=== PATIENT | female | born 1965 | race Caucasian/White ===

== ENCOUNTER 2017-07-06 07:40 | Day surgery (SDC) | payer BC, MEDICAID ==
[2017-07-06] MEDS ORDERED: Propofol 200 MG/20 ML SDV ONE ×2 (07:56→09:28)
[2017-07-06] MEDS ORDERED: fentaNYL 100 MCG/2 ML SDV ONE (07:56)
[2017-07-06] MEDS ORDERED: Midazolam 1 MG/ML 2 ML SDV ONE (07:57)
[2017-07-06] MEDS ORDERED: Lactated Ringers 1,000 ML IV SCH (08:15)
[2017-07-06] MEDS ORDERED: Ondansetron 4 MG/2 ML SDV ONE (09:20)
[2017-07-06] MEDS ORDERED: Ampicillin 2 GM in Sodium Chloride 0.9% 100 ML IV ONE (09:30)
[2017-07-06] MEDS ORDERED: Ketorolac 60 MG/2 ML SDV IM ONE (10:46)
[2017-07-06 11:10] VITALS: BP 136/84
--- NOTE | 2017-07-06 15:03 | OR ---
DATE OF PROCEDURE: 07/06/2017 PREOPERATIVE DIAGNOSIS: Colon cancer screening. POSTOPERATIVE DIAGNOSIS: Unremarkable colonoscopy. PROCEDURE: Colonoscopy to the cecum. SURGEON: Charli Parsons MD. ANESTHESIA: IV anesthesia with monitored anesthesia care. INDICATION: This 51-year-old white female is referred for a colonoscopy for colon cancer screening. She has never had a colonoscopic exam. I counseled her for the procedure including risks and alternatives, and she gave her informed consent to proceed. DESCRIPTION OF PROCEDURE: The patient was placed in the left lateral decubitus position. IV anesthesia was administered by the Anesthesia Service. A time-out was held. A rectal exam was performed, which was unremarkable. A flexible video Olympus colonoscope was introduced through her anus, up her rectum, and out her colon, all the way to the cecum. Once the cecum was reached, the scope was slowly withdrawn, examining the mucosa throughout. No mucosal abnormalities were noted. The scope was retroflexed in the rectum with the distal rectum appearing unremarkable. The scope was straightened and removed. She tolerated the procedure well. Charli Parsons MD /[id number] MTDD
== END 2017-07-06 11:13 | disposition home or self-care (01) ==
LOC: JP.SDS 07:40
PROVIDERS: ATTEND Surgery
DX: Z12.11 Encounter for screening for malignant neoplasm of colon (principal); I10 Essential (primary) hypertension; F41.9 Anxiety disorder, unspecified; F32.9 Major depressive disorder, single episode, unspecified; Z88.2 Allergy status to sulfonamides; Z88.8 Allergy status to other drugs, medicaments and biological substances; Z90.49 Acquired absence of other specified parts of digestive tract; Z98.84 Bariatric surgery status; Z98.890 Other specified postprocedural states
CPT/HCPCS: 45378; J0290; J1885; J2250; J2405; J2704; J3010; J7030; J7120

== ENCOUNTER 2017-09-25 17:47 | Emergency (ER) | payer BC, MEDICAID ==
[2017-09-25] MEDS ORDERED: Sodium Chloride 0.9% 1,000 ML IV SCH (18:15)
--- NOTE | 2017-09-25 18:16 | EDM.PDOC ---
ED HPI GENERAL MEDICAL PROBLEM - General Chief Complaint: Neurological Problem Stated Complaint: [facility] Time Seen by Provider: 09/25/17 18:05 Source of Information: Reports: Patient, Old Records, RN History Limitations: Reports: No Limitations - History of Present Illness INITIAL COMMENTS - FREE TEXT/NARRATIVE: 51 yo female with a hx of severe and recurrent migraine presents today via EMS after a first ever seizure. Duration is unknown as she was found have a seizure in her car in the local [employer] parking lot. Does not have a OW[place] today, it went away in the night last night. Is sleep deprived. Bit her tongue, but no urinary incontinence. Does not recall the seizure. EMS states she was post-ictal when found by them. Onset: Today Onset Date: 09/25/17 Onset Time: 17:30 Duration: Other (uncertain, self-limited) Location: Reports: Generalized (? not seen by anyone that can give us a description. ) Quality: Reports: Other (no pain now) Improves with: Reports: Other (? time) Worsens with: Reports: Other (? sleep deprivation) Context: Reports: Other (Hx of severe, frequent migraine) Associated Symptoms: Reports: Confusion (during post-ictal phase), Seizure. Denies: Fever/Chills Treatments RUG SETTER AXMINSTER: Reports: Other (see below) (none) - Related Data Allergies Allergy/AdvReac Type Severity Reaction Status Date / Time morphine Allergy Syncope Verified 07/06/17 08:17 Sulfa (Sulfonamide Allergy Hives Verified 05/07/16 12:10 Antibiotics) codeine AdvReac Abdominal Verified 07/03/17 09:38 Pain ibuprofen AdvReac Abdominal Verified 07/06/17 10:48 Pain Home Meds: Home Meds Rizatriptan Benzoate [Maxalt] 10 mg PO ASDIRECTED PRN 01/12/14 [History] Calcium Carbonate/Vitamin D3 [Caltrate 600 Plus D3 Tablet] 500 mg PO BID [History] Cholecalciferol (Vitamin D3) [Vitamin D3] 1,500 units PO DAILY 01/13/16 [History ] Cyanocobalamin (Vitamin B-12) [Vitamin B-12] 1,000 mcg SL DAILY 01/13/16 [ History] DULoxetine HCl [Cymbalta] 60 mg PO DAILY 01/13/16 [History] Vitamin B Complex [B Complex] 1 tab PO DAILY 01/13/16 [History] Ciclopirox/Ure/Camph/Menth/Euc [Ciclopirox 8% Treatment Kit] 1 applic TP BEDTIME 05/07/16 [History] Omeprazole 20 mg PO ACBREAKFAST 05/07/16 [History] Pedi MV No.58/Ferrous Fumarate [Eq Child Complete Chew Tablet] 1 tab PO BID 10/27 [History] L.acidoph,Paracasei, B.lactis [Probiotic] 1 each PO DAILY 07/03/17 [History] Potassium 99 mg PO DAILY 07/06/17 [History] Past Medical History HEENT History: Reports: None Other HEENT History: deviated septum Gastrointestinal History: Reports: Bowel Obstruction Genitourinary History: Reports: None RECEPTION INTERVIEWER History: Reports: , Other (See Below) Other OB/BYN History: ovarian cysts Musculoskeletal History: Reports: Arthritis, Neck Pain, Chronic Neurological History: Reports: Headaches, Chronic, Migraines Psychiatric History: Reports: Addiction, Anxiety, Depression, Suicide Attempt Hematologic History: Reports: B12 Deficiency, Blood Transfusion(s), Iron Deficiency Oncologic (Cancer) History: Reports: Other (See Below) Other Oncologic History: non cancerous fatty tumor removed mid-back - Infectious Disease History Infectious Disease History: Reports: Chicken Pox, Human Papilloma Virus (HPV) - Past Surgical History HEENT Surgical History: Reports: LASIK, Tonsillectomy GI Surgical History: Reports: Bariatric Procedure, Cholecystectomy, EGD, Small Bowel, Other (See Below) Other GI Surgeries/Procedures: small bowel resection x2 Female Surgical History: Reports: D&C, Other (See Below) Other Female Surgeries/Procedures: right fallopion tube removed; adhesions removed Neurological Surgical History: Reports: Lumbar Spine Musculoskeletal Surgical History: Reports: Hip Replacement, Shoulder Surgery, Other (See Below) Other Musculoskeletal Surgeries/Procedures:: elbow surgery Oncologic Surgical History: Reports: None Dermatological Surgical History: Reports: None Social & Family History - Family History Family Medical History: Noncontributory - Tobacco Use Smoking Status *Q: Current Every Day Smoker Years of Tobacco use: 10 Packs/Tins Daily: 0.5 Used Tobacco, but Quit: No Second Hand Smoke Exposure: No - Caffeine Use Caffeine Use: Reports: Energy Drinks - Alcohol Use Days Per Week of Alcohol Use: 0 - Recreational Drug Use Recreational Drug Use: No Drug Use in Last 12 Months: Yes Recreational Drug Type: Reports: Xanax Recreational Drug Use Frequency: Not Used In Over 6 Months ED ROS GENERAL - Review of Systems Review Of Systems: See Below Constitutional: Reports: No Symptoms HEENT: Reports: Other (sore tongue) Respiratory: Reports: No Symptoms Cardiovascular: Reports: No Symptoms GI/Abdominal: Reports: No Symptoms : Reports: No Symptoms Musculoskeletal: Reports: No Symptoms Skin: Reports: No Symptoms Neurological: Reports: Headache (not now, but has them frequently.), Seizure ( per passers by who called 911) Psychiatric: Reports: No Symptoms - Physical Exam Exam: See Below Exam Limited By: No Limitations General Appearance: Alert, WD/WN, No Apparent Distress Eye Exam: Bilateral Eye: EOMI, Normal Inspection, PERRL Ears: Normal External Exam, Normal Canal, Hearing Grossly Normal, Normal TMs Nose: Normal Inspection, Normal Mucosa, No Blood Throat/Mouth: Normal Inspection, Normal Lips, Normal Teeth, Normal Oropharynx, Normal Voice, No Airway Compromise, Evidence of Tongue Biting Head Exam: Atraumatic, Normocephalic Neck: Normal Inspection, Supple, Non-Tender Respiratory/Chest: No Respiratory Distress, Lungs Clear, Normal Breath Sounds, No Accessory Muscle Use Cardiovascular: Regular Rate, Rhythm, No Edema GI/Abdominal: Normal Bowel Sounds, Soft, Non-Tender, No Distention Neuro Exam (Abbreviated): Alert, Oriented, CN II-XII Intact, Normal Cognition, No Motor/Sensory Deficits Back Exam: Normal Inspection. No: CVA Tenderness (R), CVA Tenderness (L) Extremities: Normal Inspection, Normal Range of Motion, Non-Tender, No Pedal Edema Psychiatric: Normal Affect, Normal Mood Skin Exam: Warm, Dry, Intact, Normal Color, No Rash Course - Vital Signs Last Recorded V/S: Last Vital Signs Temp 37.1 C 09/25/17 18:24 Pulse 96 09/25/17 18:30 Resp 18 09/25/17 18:30 BP 164/101 H 09/25/17 18:30 Pulse Ox 95 09/25/17 18:30 - Orders/Labs/Meds Orders: Active Orders 24 hr Category Date Time Status Cardiac Monitoring [RC] .As Directed Care 09/25/17 18:01 Active Head wo Cont [CT] Stat Exams 09/25/17 18:08 Taken Sodium Chloride 0.9% [Normal Saline] 1,000 ml Med 09/25/17 18:15 Active IV ASDIRECTED Medication Orders Sodium Chloride (Normal Saline) 1,000 mls @ 150 mls/hr IV ASDIRECTED COURNTEY Last Admin: 09/25/17 18:57 Dose: 150 mls/hr Labs: Laboratory Tests 09/25/17 09/25/17 09/25/17 Range/Units 18:08 18:08 18:19 WBC 7.0 (4.5-11.0) K/uL RBC 4.50 (3.30-5.50) M/uL Hgb 13.7 D (12.0-15.0) g/dL Hct 41.4 (36.0-48.0) % MCV 92 (80-98) fL MCH 30 (27-31) pg MCHC 33 (32-36) % Plt Count 332 (150-400) K/uL Sodium 141 (140-148) mmol/L Potassium 4.2 (3.6-5.2) mmol/L Chloride 103 (100-108) mmol/L Carbon Dioxide 25 (21-32) mmol/L Anion Gap 13.1 (5.0-14.0) mmol/L BUN 13 (7-18) mg/dL Creatinine 0.8 (0.6-1.0) mg/dL Est Cr Clr Drug Dosing 81.81 mL/min Estimated GFR (MDRD) > 60 (>60) Glucose 101 (74-106) mg/dL Calcium 9.0 (8.5-10.1) mg/dL Magnesium (1.8-2.4) mg/dL AST 19 (15-37) U/L Urine Color Urine Appearance Urine pH (4.5-8.0) Ur Specific [place] (1.008-1.030) Urine Protein (NEGATIVE) mg/dL Urine Glucose (UA) (NEGATIVE) mg/dL Urine Ketones (NEGATIVE) mg/dL Urine Occult Blood (NEGATIVE) Urine Nitrite (NEGATIVE) Urine Bilirubin (NEGATIVE) Urine Urobilinogen (NORMAL) mg/dL Ur Leukocyte Esterase (NEGATIVE) Urine RBC (0-5) Urine WBC (0-5) Ur Epithelial Cells Amorphous Sediment Urine Bacteria Urine Mucus Urine Opiates Screen (NEGATIVE) Ur Oxycodone Screen (NEGATIVE) Urine Methadone Screen (NEGATIVE) Ur Propoxyphene Screen (NEGATIVE) Ur Barbiturates Screen (NEGATIVE) Ur Tricyclics Screen (NEGATIVE) Ur Phencyclidine Scrn (NEGATIVE) Ur Amphetamine Screen (NEGATIVE) U Methamphetamines Scrn (NEGATIVE) Urine MDMA Screen (NEGATIVE) U Benzodiazepines Scrn (NEGATIVE) U Cocaine Metab Screen (NEGATIVE) U Marijuana (THC) Screen (NEGATIVE) 09/25/17 09/25/17 09/25/17 Range/Units 18:43 18:43 19:01 WBC (4.5-11.0) K/uL RBC (3.30-5.50) M/uL Hgb (12.0-15.0) g/dL Hct (36.0-48.0) % MCV (80-98) fL MCH (27-31) pg MCHC (32-36) % Plt Count (150-400) K/uL Sodium (140-148) mmol/L Potassium (3.6-5.2) mmol/L Chloride (100-108) mmol/L Carbon Dioxide (21-32) mmol/L Anion Gap (5.0-14.0) mmol/L BUN (7-18) mg/dL Creatinine (0.6-1.0) mg/dL Est Cr Clr Drug Dosing mL/min Estimated GFR (MDRD) (>60) Glucose (74-106) mg/dL Calcium (8.5-10.1) mg/dL Magnesium 2.0 (1.8-2.4) mg/dL AST (15-37) U/L Urine Color Yellow Urine Appearance Clear Urine pH 6.0 (4.5-8.0) Ur Specific [place] 1.020 (1.008-1.030) Urine Protein Negative (NEGATIVE) mg/dL Urine Glucose (UA) Normal (NEGATIVE) mg/dL Urine Ketones 15 H (NEGATIVE) mg/dL Urine Occult Blood Negative (NEGATIVE) Urine Nitrite Negative (NEGATIVE) Urine Bilirubin Negative (NEGATIVE) Urine Urobilinogen Normal (NORMAL) mg/dL Ur Leukocyte Esterase Negative (NEGATIVE) Urine RBC 0-5 (0-5) Urine WBC 0-5 (0-5) Ur Epithelial Cells Few Amorphous Sediment Few Urine Bacteria Rare Urine Mucus Few Urine Opiates Screen Negative (NEGATIVE) Ur Oxycodone Screen Negative (NEGATIVE) Urine Methadone Screen Negative (NEGATIVE) Ur Propoxyphene Screen Negative (NEGATIVE) Ur Barbiturates Screen Negative (NEGATIVE) Ur Tricyclics Screen Negative (NEGATIVE) Ur Phencyclidine Scrn Negative (NEGATIVE) Ur Amphetamine Screen Negative (NEGATIVE) U Methamphetamines Scrn Negative (NEGATIVE) Urine MDMA Screen Negative (NEGATIVE) U Benzodiazepines Scrn Negative (NEGATIVE) U Cocaine Metab Screen Negative (NEGATIVE) U Marijuana (THC) Screen Negative (NEGATIVE) Meds: Medications Generic Name Dose Route Start Last Admin Trade Name Freq PRN Reason Stop Dose Admin Sodium Chloride 1,000 mls @ 150 mls/hr 09/25/17 18:15 09/25/17 18:57 Normal Saline IV 150 mls/hr ASDIRECTED COURTNEY Administration Discontinued Medications Generic Name Dose Route Start Last Admin Trade Name Freq PRN Reason Stop Dose Admin Rizatriptan Benzoate 10 mg 09/25/17 18:58 09/25/17 19:07 Maxalt Arc And [employer] Welder PO 09/25/17 18:59 10 mg NOW STA Administration - Radiology Interpretation Free Text/Narrative:: Head CT scan-negative CT Results Date: 09/25/17 Departure - Departure Time of Disposition: 19:15 Disposition: Home, Self-Care 01 Condition: Fair Clinical Impression: Seizure Migraine Qualifiers: Migraine type: without aura Status migrainosus presence: with status migrainosus Intractability: not intractable Qualified Code(s): G43.001 - Migraine without aura, not intractable, with status migrainosus - Discharge Information Referrals: PCP,None [Primary Care Provider] - Forms: ED Department Discharge - My Orders Last 24 Hours: My Active Orders 09/25/17 18:01 Cardiac Monitoring [RC] .As Directed 09/25/17 18:08 Head wo Cont [CT] Stat 09/25/17 18:15 Sodium Chloride 0.9% [Normal Saline] 1,000 ml IV ASDIRECTED - Assessment/Plan Last 24 Hours: My Active Orders 09/25/17 18:01 Cardiac Monitoring [RC] .As Directed 09/25/17 18:08 Head wo Cont [CT] Stat 09/25/17 18:15 Sodium Chloride 0.9% [Normal Saline] 1,000 ml IV ASDIRECTED
[2017-09-25 18:45] VITALS: BP 164/101
[2017-09-25] MEDS ORDERED: Rizatriptan 10 MG Tab.DIS PO STA (18:58)
== END 2017-09-25 20:08 | disposition home or self-care (01) ==
LOC: JP.ED 17:47
DX: R56.9 Unspecified convulsions (principal); G43.001 Migraine without aura, not intractable, with status migrainosus; Z79.899 Other long term (current) drug therapy; Z88.6 Allergy status to analgesic agent
CPT/HCPCS: 36415; 70450; 80048; 80305; 81001; 83735; 84450; 85027; 99284; A9270; J7040

== ENCOUNTER 2019-08-19 09:46 | Emergency (ER) | payer MEDICARE ==
--- NOTE | 2019-08-19 10:25 | EDM.PDOCBH ---
ED HPI GENERAL MEDICAL PROBLEM - General Chief Complaint: Behavioral/Psych Stated Complaint: SLEEPING ALOT BEEN VERY TIRED Time Seen by Provider: 08/19/19 11:19 - History of Present Illness INITIAL COMMENTS - FREE TEXT/NARRATIVE: 53 yo history of depression, PTSD presents today with her her concern of increased depressive symptoms About two weeks ago noticed increased depressive symptoms - sleeping more, lack of energy, loss of interest in daily living She reports this occurs around the anniversary of her going through treatment for benzo dependency which was very traumatic She has a hard time concentrating during the day - ie driving in the lines on the road is concerned because these symptoms have lasted longer than usual, he also notes occasional gait instability. She denies any fever, focal weakness. No med changes. No SI. No hallucinations. - Related Data Allergies Allergy/AdvReac Type Severity Reaction Status Date / Time Sulfa (Sulfonamide Allergy Severe Hives Verified 08/19/19 10:28 Antibiotics) morphine Allergy Intermediate Syncope Verified 08/19/19 10:28 codeine AdvReac Intermediate Abdominal Verified 08/19/19 10:28 Pain ibuprofen AdvReac Intermediate Abdominal Verified 08/19/19 10:28 Pain Home Meds: Home Meds Rizatriptan Benzoate [Maxalt] 10 mg PO ASDIRECTED PRN 01/12/14 [History] Calcium Carbonate/Vitamin D3 [Caltrate 600 Plus D3 Tablet] 500 mg PO BID [History] Cholecalciferol (Vitamin D3) [Vitamin D3] 1,500 units PO DAILY 01/13/16 [History ] Cyanocobalamin (Vitamin B-12) [Vitamin B-12] 1,000 mcg SL DAILY 01/13/16 [ History] DULoxetine HCl [Cymbalta] 60 mg PO DAILY 01/13/16 [History] Vitamin B Complex [B Complex] 1 tab PO DAILY 01/13/16 [History] Pedi MV No.58/Ferrous Fumarate [Eq Child Complete Chew Tablet] 1 tab PO BID 10/27 [History] L.acidoph,Paracasei, B.lactis [Probiotic] 1 each PO DAILY 07/03/17 [History] Potassium 99 mg PO DAILY 07/06/17 [History] Black Cohosh 540 mg PO DAILY 08/19/19 [History] Propranolol [Inderal] 10 mg PO TID 08/19/19 [History] Past Medical History HEENT History: Reports: None Other HEENT History: deviated septum Gastrointestinal History: Reports: Bowel Obstruction Genitourinary History: Reports: None ENVIRONMENTAL MANAGEMENT SPECIALIST History: Reports: , Other (See Below) Other ENVIRONMENTAL MANAGEMENT SPECIALIST History: ovarian cysts Musculoskeletal History: Reports: Arthritis, Neck Pain, Chronic Neurological History: Reports: Headaches, Chronic, Migraines Psychiatric History: Reports: Addiction, Anxiety, Depression, Suicide Attempt Hematologic History: Reports: B12 Deficiency, Blood Transfusion(s), Iron Deficiency Oncologic (Cancer) History: Reports: Other (See Below) Other Oncologic History: non cancerous fatty tumor removed mid-back - Infectious Disease History Infectious Disease History: Reports: Chicken Pox, Human Papilloma Virus (HPV) - Past Surgical History HEENT Surgical History: Reports: LASIK, Tonsillectomy GI Surgical History: Reports: Bariatric Procedure, Cholecystectomy, EGD, Small Bowel, Other (See Below) Other GI Surgeries/Procedures: small bowel resection x2 Female Surgical History: Reports: D&C, Other (See Below) Other Female Surgeries/Procedures: right fallopion tube removed; adhesions removed Neurological Surgical History: Reports: Lumbar Spine Musculoskeletal Surgical History: Reports: Hip Replacement, Shoulder Surgery, Other (See Below) Other Musculoskeletal Surgeries/Procedures:: elbow surgery Oncologic Surgical History: Reports: None Dermatological Surgical History: Reports: None Social & Family History - Family History Family Medical History: Noncontributory - Caffeine Use Caffeine Use: Reports: Energy Drinks ED ROS GENERAL - Review of Systems Review Of Systems: See Below Constitutional: Reports: No Symptoms HEENT: Reports: No Symptoms Respiratory: Reports: No Symptoms Cardiovascular: Reports: No Symptoms Endocrine: Reports: No Symptoms GI/Abdominal: Reports: No Symptoms : Reports: No Symptoms Musculoskeletal: Reports: No Symptoms Skin: Reports: No Symptoms Neurological: Reports: No Symptoms Psychiatric: Reports: Depression. Denies: Hallucinations, Suicidal Ideation Hematologic/Lymphatic: Reports: No Symptoms Immunologic: Reports: No Symptoms ED EXAM, BEHAVIORAL HEALTH - Physical Exam Exam: See Below Exam Limited By: No Limitations General Appearance: Alert, No Apparent Distress Ears: Normal External Exam Nose: Normal Inspection Throat/Mouth: Normal Inspection Head: Atraumatic Neck: Normal Inspection Respiratory/Chest: No Respiratory Distress Cardiovascular: Regular Rate, Rhythm GI/Abdominal: Non-Tender, No Distention Back Exam: Normal Inspection Extremities: Normal Inspection Neurological: Alert Psychiatric: Alert, Flat Affect, Other (tearful) Skin Exam: Warm, Dry COURSE, BEHAVIORAL HEALTH COMP - Course Vital Signs: Last Vital Signs Temp 36.4 C 08/19/19 10:24 Pulse 68 08/19/19 10:24 Resp 18 08/19/19 10:24 BP 121/82 08/19/19 10:24 Pulse Ox 100 08/19/19 10:24 Re-Assessment/Re-Exam: 53 yo presents with concerns of increased depressive symptoms Some concern from for behavioral changes, occasional difficulty with ambulation, duration of symptoms. They are concerned for stroke, symptoms and exam not consistent with this. We discussed very low probability of structural lesion (ie tumor), but patient and very concerned about this so non-con HCT obtained and normal. She is currently not dangerous to self. Has as support and reports would not hurt self due to mandaeism beliefs. She is safe for prompt PCP follow-up, I call PCP office to arrange this early next week. She knows she can return to ER at any time if she feels unsafe to self. Departure - Departure Time of Disposition: 12:20 Disposition: Home, Self-Care 01 Clinical Impression: Depression Qualifiers: Depression Type: major depressive disorder Major depression recurrence: recurrent Active/Remission status: currently active Major depression episode severity: moderate Qualified Code(s): F33.1 - Major depressive disorder, recurrent, moderate - Discharge Information Referrals: Devan Gamble MD [Primary Care Provider] - Forms: ED Department Discharge Additional Instructions: You head CT scan is normal. Please follow up with Dr Gamble on Thursday (Aug 23) at 2:30pm to discuss further management of your depressive symptoms Please return to the ER if you feel that you may hurt yourself
[2019-08-19 10:26] VITALS: BP 121/82; PULSE 68
--- NOTE | 2019-08-19 12:04 | CRLCT ---
INDICATION: confusion, gait instability CT HEAD WITHOUT CONTRAST TECHNIQUE: Multiple axial CT images were performed through the head without intravenous contrast administration. COMPARISON: 09/25/[address] FINDINGS: No acute intracranial hemorrhage is identified. No extra-axial collections are evident and there is no mass effect or midline shift. Ventricles are normal in size and configuration. Brain parenchyma appears normal with unremarkable murcia-white differentiation. Osseous structures are within normal limits and no fractures are seen. Included portions of the paranasal sinuses and mastoid air cells are normally aerated. IMPRESSION: Normal non-contrast head CT. MARC INTERIANO MD [facility] Dictated by: Usman Interiano MD @ 08/19/2019 12:03:16 (Electronically Signed)
== END 2019-08-19 13:12 | disposition home or self-care (01) ==
LOC: JP.ED 09:46
DX: F33.1 Major depressive disorder, recurrent, moderate (principal); Z88.2 Allergy status to sulfonamides; Z88.5 Allergy status to narcotic agent; Z88.6 Allergy status to analgesic agent
CPT/HCPCS: 70450; 99283; 99284-25

== ENCOUNTER 2021-09-23 04:09 | Inpatient (IN) | payer MEDICARE ==
[2021-09-23] MEDS ORDERED: HYDROmorphone 1 MG/ML Syringe IVPUSH ONE (04:28)
[2021-09-23] MEDS ORDERED: Ondansetron 4 MG/2 ML SDV IVPUSH ONE (04:28)
[2021-09-23] MEDS ORDERED: Sodium Chloride 0.9% 10 ML Syringe FLUSH PRN ×2 (04:28→06:59)
[2021-09-23] MEDS ORDERED: Lactated Ringers 1,000 ML IV SCH (04:30)
--- NOTE | 2021-09-23 04:41 | EDM.PDOC ---
ED HPI GENERAL MEDICAL PROBLEM - General Chief Complaint: Abdominal Pain Stated Complaint: POSSIBLE SMALL BOWEL OBSTRUCTION Time Seen by Provider: 09/23/21 04:22 Source of Information: Reports: Patient, Old Records, RN Notes Reviewed History Limitations: Reports: No Limitations - History of Present Illness INITIAL COMMENTS - FREE TEXT/NARRATIVE: 55-year-old female presents emergency department day complaint of abdominal pain. She has known history of gastric bypass she is also has a history of bowel obstruction in the past. Recently had CAT scan done this summer which shahid wed partial small bowel obstruction. Has had some resolution with that as she has been able to function in the community without any particular intervention. Has been following with the gastric bypass surgery center had scheduled an exploratory laparotomy for 07 October. Recently had preoperative evaluation done and preoperative surgical visitations in clinic. However started having abdominal pain early in the evening last night is progressively gotten worse. She is not passing any gas does have nausea pain is been difficult to get under control. No fevers no Covid exposure that she is aware of Abdomen Pain Score (Numeric/FACES): 6 - Related Data Allergies Allergy/AdvReac Type Severity Reaction Status Date / Time Sulfa (Sulfonamide Allergy Severe Hives Verified 09/23/21 04:19 Antibiotics) morphine Allergy Intermediate Syncope Verified 09/23/21 04:19 codeine AdvReac Intermediate Abdominal Verified 09/23/21 04:19 Pain ibuprofen AdvReac Intermediate Abdominal Verified 09/23/21 04:19 Pain Home Meds: Home Meds Rizatriptan Benzoate [Maxalt] 10 mg PO ASDIRECTED PRN 01/12/14 [History] Calcium Carbonate/Vitamin D3 [Caltrate 600 Plus D3 Tablet] 500 mg PO BID 01/13/16 [History] Cholecalciferol (Vitamin D3) [Vitamin D3] 1,500 units PO DAILY 01/13/16 [Hist ory] Cyanocobalamin (Vitamin B-12) [Vitamin B-12] 1,000 mcg SL DAILY 01/13/16 [History] DULoxetine HCl [Cymbalta] 60 mg PO DAILY 01/13/16 [History] Vitamin B Complex [B Complex] 1 tab PO DAILY 01/13/16 [History] Pedi MV No.58/Ferrous Fumarate [Eq Child Complete Chew Tablet] 1 tab PO BID 07/12/16 [History] L.acidoph,Paracasei, B.lactis [Probiotic] 1 each PO DAILY 07/03/17 [History] Potassium 99 mg PO DAILY 07/06/17 [History] Black Cohosh 540 mg PO DAILY 08/19/19 [History] Propranolol [Inderal] 10 mg PO TID 08/19/19 [History] Past Medical History Other HEENT History: deviated septum Gastrointestinal History: Reports: Bowel Obstruction [employer]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: Reports: , Other (See Below) 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 Musculoskeletal History: Reports: Arthritis, Neck Pain, Chronic Neurological History: Reports: Headaches, Chronic, Migraines Psychiatric History: Reports: Addiction, Anxiety, Depression, Suicide Attempt Hematologic History: Reports: B12 Deficiency, Blood Transfusion(s), Iron Deficiency Oncologic (Cancer) History: Reports: Other (See Below) Other Oncologic History: non cancerous fatty tumor removed mid-back - Infectious Disease History Infectious Disease History: Reports: Chicken Pox, Human Papilloma Virus (HPV) - Past Surgical History HEENT Surgical History: Reports: LASIK, Tonsillectomy GI Surgical History: Reports: Bariatric Procedure, Cholecystectomy, EGD, Small Bowel, Other (See Below) Other GI Surgeries/Procedures: small bowel resection x2 Female Surgical History: Reports: D&C, Other (See Below) Other Female Surgeries/Procedures: right fallopion tube removed; adhesions removed Neurological Surgical History: Reports: Lumbar Spine Musculoskeletal Surgical History: Reports: Hip Replacement, Shoulder Surgery, Other (See Below) Other Musculoskeletal Surgeries/Procedures:: elbow surgery Oncologic Surgical History: Reports: None Dermatological Surgical History: Reports: None Social & Family History - Family History Family Medical History: No Pertinent Family History - Tobacco Use Tobacco Use Status *Q: Current Every Day Tobacco User Years of Tobacco use: 5 Packs/Tins Daily: 0 - Caffeine Use Caffeine Use: Reports: Energy Drinks - Recreational Drug Use Recreational Drug Use: No ED ROS GENERAL - Review of Systems Review Of Systems: See Below Constitutional: Reports: No Symptoms HEENT: Reports: No Symptoms Respiratory: Reports: No Symptoms Cardiovascular: Reports: No Symptoms GI/Abdominal: Reports: Abdominal Pain, Nausea ED EXAM, GI/ABD - Physical Exam Exam: See Below Exam Limited By: No Limitations General Appearance: Alert, Moderate Distress Respiratory/Chest: No Respiratory Distress, Lungs Clear, Normal Breath Sounds, No Accessory Muscle Use, Chest Non-Tender Cardiovascular: Regular Rate, Rhythm, No Murmur GI/Abdominal Exam: Normal Bowel Sounds, Soft, No Distention, No Abnormal Bruit, No Mass, Tender (Midline epigastric region) Course - Vital Signs Last Recorded V/S: Last Vital Signs Temp 97.8 F 09/23/21 04:49 Pulse 81 09/23/21 04:23 Resp 20 09/23/21 04:23 BP 157/105 H 09/23/21 04:23 Pulse Ox 98 09/23/21 04:23 - Orders/Labs/Meds Orders: Active Orders 24 hr Category Date Time Status Peripheral IV Care [RC] . DIRECTED Care 09/23/21 04:29 Active UA W/MICROSCOPIC [URIN] Urgent Lab 09/23/21 04:28 Ordered Iopamidol [Isovue-300 (61%)] Med 09/23/21 04:42 Active 117 ml IV . DIRECTED PRN Lactated Ringers [Ringers, Lactated] 1,000 ml Med 09/23/21 04:30 Active IV ASDIRECTED Sodium Chloride 0.9% [Normal Saline] 100 ml Med 09/23/21 04:45 Active IV ASDIRECTED Sodium Chloride 0.9% [Saline Flush] Med 09/23/21 04:28 Active 10 ml FLUSH ASDIRECTED PRN Peripheral IV Insertion Adult [OM.PC] Urgent Oth 09/23/21 04:28 Ordered Medication Orders Lactated Ringer's (Ringers, Lactated) 1,000 mls @ 125 mls/hr IV ASDIRECTED COURTNEY Last Admin: 09/23/21 04:40 Dose: 125 mls/hr Documented by: ESTHER Sodium Chloride (Normal Saline) 100 mls @ 3 mls/sec IV ASDIRECTED [facility] Iopamidol (Iopamidol 612 Mg/Ml 150 Ml Bottle) 117 ml IV . DIRECTED PRN PRN Reason: RADIOLOGY EXAM Stop: 09/24/21 04:43 Last Admin: 09/23/21 05:09 Dose: 117 ml Documented by: LIONEL Sodium Chloride (Sodium Chloride 0.9% 10 Ml Syringe) 10 ml FLUSH ASDIRECTED PRN PRN Reason: Keep Vein Open Last Admin: 09/23/21 05:10 Dose: 10 ml Documented by: LIONEL Labs: Laboratory Tests 09/23/21 09/23/21 09/23/21 Range/Units 04:10 04:10 04:10 WBC 6.0 (4.5-11.0) K/uL RBC 4.99 (3.30-5.50) M/uL Hgb 14.9 (12.0-15.0) g/dL Hct 45.1 (36.0-48.0) % MCV 90 (80-98) fL MCH 30 (27-31) pg MCHC 33 (32-36) % Plt Count 329 (150-400) K/uL Neut % (Auto) 49.4 (36-66) % Lymph % (Auto) 37.3 (24-44) % [place] % (Auto) 8.5 H (2-6) % Eos % (Auto) 3.5 (2-4) % Baso % (Auto) 1.3 H (0-1) % Sodium 137 L (140-148) mmol/L Potassium 4.0 (3.6-5.2) mmol/L Chloride 102 (100-108) mmol/L Carbon Dioxide 27 (21-32) mmol/L Anion Gap 12.0 (5.0-14.0) mmol/L BUN 19 H (7-18) mg/dL Creatinine 0.9 (0.6-1.0) mg/dL Est Cr Clr Drug Dosing 69.49 mL/min Estimated GFR (MDRD) > 60 (>60) Glucose 118 H (74-106) mg/dL Lactic Acid 1.5 (0.4-2.0) mmol/L Calcium 9.2 (8.5-10.1) mg/dL Total Bilirubin 0.3 (0.2-1.0) mg/dL AST 23 (15-37) U/L ALT 45 (12-78) U/L Alkaline Phosphatase 92 (46-116) U/L Total Protein 7.4 (6.4-8.2) g/dL Albumin 4.3 (3.4-5.0) g/dL Globulin 3.1 (2.3-3.5) g/dL Albumin/Globulin Ratio 1.4 (1.2-2.2) Lipase 271 (73-393) U/L SARS CoV-2 RNA Rapid SCOOTER 09/23/21 Range/Units 04:37 WBC (4.5-11.0) K/uL RBC (3.30-5.50) M/uL Hgb (12.0-15.0) g/dL Hct (36.0-48.0) % MCV (80-98) fL MCH (27-31) pg MCHC (32-36) % Plt Count (150-400) K/uL Neut % (Auto) (36-66) % Lymph % (Auto) (24-44) % [place] % (Auto) (2-6) % Eos % (Auto) (2-4) % Baso % (Auto) (0-1) % Sodium (140-148) mmol/L Potassium (3.6-5.2) mmol/L Chloride (100-108) mmol/L Carbon Dioxide (21-32) mmol/L Anion Gap (5.0-14.0) mmol/L BUN (7-18) mg/dL Creatinine (0.6-1.0) mg/dL Est Cr Clr Drug Dosing mL/min Estimated GFR (MDRD) (>60) Glucose (74-106) mg/dL Lactic Acid (0.4-2.0) mmol/L Calcium (8.5-10.1) mg/dL Total Bilirubin (0.2-1.0) mg/dL AST (15-37) U/L ALT (12-78) U/L Alkaline Phosphatase (46-116) U/L Total Protein (6.4-8.2) g/dL Albumin (3.4-5.0) g/dL Globulin (2.3-3.5) g/dL Albumin/Globulin Ratio (1.2-2.2) Lipase (73-393) U/L SARS CoV-2 RNA Rapid SCOOTER Negative Meds: Medications Generic Name Dose Route Start Last Admin Trade Name Freq PRN Reason Stop Dose Admin Lactated Ringer's 1,000 mls @ 125 mls/hr 09/23/21 04:30 09/23/21 04:40 Ringers, Lactated IV 125 mls/hr ASDIRECTED COURTNEY Administration Sodium Chloride 100 mls @ 3 mls/sec 09/23/21 04:45 Normal Saline IV ASDIRECTED COURTNEY Iopamidol 117 ml 09/23/21 04:42 09/23/21 05:09 Iopamidol 612 Mg/Ml 150 Ml Bottle IV 09/24/21 04:43 117 ml . DIRECTED PRN Administration RADIOLOGY EXAM Sodium Chloride 10 ml 09/23/21 04:28 09/23/21 05:10 Sodium Chloride 0.9% 10 Ml Syringe FLUSH 10 ml ASDIRECTED PRN Administration Keep Vein Open Discontinued Medications Generic Name Dose Route Start Last Admin Trade Name Freq PRN Reason Stop Dose Admin Hydromorphone HCl 1 mg 09/23/21 04:28 09/23/21 04:38 Hydromorphone 1 Mg/Ml Syringe IVPUSH 09/23/21 04:29 1 mg ONETIME ONE Administration Ondansetron HCl 4 mg 09/23/21 04:28 09/23/21 04:40 Ondansetron 4 Mg/2 Ml Sdv IVPUSH 09/23/21 04:29 4 mg ONETIME ONE Administration Sodium Chloride 10 ml 09/23/21 04:42 Sodium Chloride 0.9% 10 Ml Sdv FLUSH 09/23/21 04:43 ONETIME ONE Departure - Departure Time of Disposition: 06:23 Disposition: Admitted As Inpatient 67 Condition: Fair Clinical Impression: Abdominal pain Qualifiers: Abdominal location: epigastric Qualified Code(s): R10.13 - Epigastric pain - Discharge Information Referrals: Devan Gamble MD [Primary Care Provider] - Forms: ED Department Discharge Sepsis Event Note (ED) - Focused Exam Vital Signs: Vital Signs Temp Pulse Resp BP Pulse Ox 09/23/21 04:49 97.8 F 09/23/21 04:23 81 20 157/105 H 98 - My Orders Last 24 Hours: My Active Orders 09/23/21 04:28 UA W/MICROSCOPIC [URIN] Urgent Sodium Chloride 0.9% [Saline Flush] 10 ml FLUSH ASDIRECTED PRN Peripheral IV Insertion Adult [OM.PC] Urgent 09/23/21 04:29 Peripheral IV Care [RC] . DIRECTED 09/23/21 04:30 Lactated Ringers [Ringers, Lactated] 1,000 ml IV ASDIRECTED 09/23/21 04:42 Iopamidol [Isovue-300 (61%)] 117 ml IV . DIRECTED PRN 09/23/21 04:45 Sodium Chloride 0.9% [Normal Saline] 100 ml IV ASDIRECTED - Assessment/Plan Last 24 Hours: My Active Orders 09/23/21 04:28 UA W/MICROSCOPIC [URIN] Urgent Sodium Chloride 0.9% [Saline Flush] 10 ml FLUSH ASDIRECTED PRN Peripheral IV Insertion Adult [OM.PC] Urgent 09/23/21 04:29 Peripheral IV Care [RC] . DIRECTED 09/23/21 04:30 Lactated Ringers [Ringers, Lactated] 1,000 ml IV ASDIRECTED 09/23/21 04:42 Iopamidol [Isovue-300 (61%)] 117 ml IV . DIRECTED PRN 09/23/21 04:45 Sodium Chloride 0.9% [Normal Saline] 100 ml IV ASDIRECTED Plan: Assessment Acuity = acute Site and laterality = abdominal pain complicated the patient with gastric bypass surgery Etiology = unknown history of small bowel obstruction as well as constipation Manifestations = none Location of injury = Home Lab values = CBC CMP unremarkable urinalysis unremarkable CT scan of the abdomen describes a moderate amount of stool in colon Plan Call discussed case with Juliana Garcia who is on-call for the gastric bypass team at 620 she kindly agreed to come and evaluate the patient in the emergency department for admission This note was dictated using [employer] voice recognition software please call with any questions on syntax or grammar.
[2021-09-23] MEDS ORDERED: Sodium Chloride 0.9% 10 ML SDV FLUSH ONE (04:42)
[2021-09-23] MEDS ORDERED: Iopamidol 612 MG/ML 150 ML Bottle IV PRN (04:42)
[2021-09-23] MEDS ORDERED: Sodium Chloride 0.9% 100 ML IV SCH (04:45)
--- NOTE | 2021-09-23 06:08 | CRLCT ---
For Patients: As a result of the Century Cures Act, medical imaging exams and procedure reports are released immediately into your electronic medical record. You may view this report before your referring provider. If you have questions, please contact your health care provider. Indication: Epigastric pain with history of Cain-en-Y gastric bypass Technique: Volumetric multidetector CT images of the abdomen and pelvis were obtained after the administration of intravenous contrast. 117 cc Isovue-300 low osmolar intravenous contrast Comparison: CT abdomen and pelvis May 10, 2021 Findings: The lung bases are clear. The liver is normal in attenuation without intrahepatic biliary ductal dilatation. The portal vein is patent. There is prior cholecystectomy. There is moderate reservoir dilatation of the intrahepatic and common bile ducts. The spleen is normal in enhancement and size. Postoperative changes of the stomach status post Cain-en-Y gastric bypass are again appreciated with contrast opacifying the stomach and Cain limbs. There is contrast opacifying the distal small bowel and terminal ileum. The pancreas is normal in enhancement without significant atrophy. The adrenal glands are unremarkable. The kidneys demonstrate preserved corticomedullary differentiation without evidence of obstructive uropathy. There is moderate stool seen throughout the colon with distal colonic diverticulosis without evidence of diverticulitis. The appendix is unremarkable. There is no significant mesenteric, retroperitoneal, or pelvic sidewall lymph nodes. The aorta is nonaneurysmal. There is no significant atherosclerotic disease appreciated. There is a mildly fibroid appearing uterus otherwise the pelvic viscera are grossly within normal limits. There is no free fluid or free air. Postoperative change status post prior abdominal surgeries with mild diastasis of the rectus musculature status post ventral hernia repair. The lumbar vertebral body heights are maintained with prior pedicle screw fixation and interbody fusion placement at the L3-L4 level. Impression: Postoperative change status post Cain-en-Y gastric bypass with contrast opacification of the Cain limb and distal small bowel. Moderate stool seen throughout the colon. Otherwise, no definite acute intra-abdominal abnormality. Prior cholecystectomy. Please note that all CT scans at this facility use dose modulation, iterative reconstruction, and/or weight-based dosing when appropriate to reduce radiation dose to as low as reasonably achievable. Dictated by Wallace Sanford MD @ 09/23/2021 6:06:21 AM (Electronically Signed)
[2021-09-23] MEDS ORDERED: Acetaminophen 325 MG Tab PO PRN (07:21)
[2021-09-23] MEDS ORDERED: hydrOXYzine HCl 25 MG Tab PO PRN (08:06)
[2021-09-23] MEDS ORDERED: MVI, Adult with Vitamin K 10 ML, Thiamine 100 MG, Magnesium Sulfate 2 GM, Folic Acid 1 ... IV ONE ×5 (09:00)
[2021-09-23] MEDS ORDERED: Non-Formulary Medication 1 Each (Propranolol [Inderal] 10 MG Tablet) PO SCH (09:00)
[2021-09-23] MEDS: HYDROmorphone 0.5 MG/0.5 ML Syringe IVPUSH PRN ×3 (09:19→21:51)
[2021-09-23] MEDS: Topiramate 25 MG Tab PO SCH ×2 (09:20→20:10)
[2021-09-23] MEDS: Propranolol 40 MG Tab PO SCH ×2 (09:20→16:35)
[2021-09-23] MEDS: Potassium Chloride 10 MEQ Cap.ER PO SCH (09:20)
[2021-09-23] MEDS: DULoxetine 30 MG Cap PO SCH ×2 (09:20→20:10)
[2021-09-23] MEDS: buPROPion 150 MG Tab.SR PO SCH ×2 (09:21→20:10)
--- NOTE | 2021-09-23 09:28 | HP ---
HISTORY OF PRESENT ILLNESS: Deepa presented to the emergency room on 09/23/2021 around 4 a.m. She states that she ate supper and developed severe mid abdominal pain, radiated to the left and periumbilical area. She states it has been flaring up more often where she has had episodes of severe cramping pressure, bloating, and feels swollen inside. She was first diagnosed with a partial small bowel obstruction in April and managed it with having 3 to 4 episodes until September and then was scheduled for surgery the end of this month. She states this is the worst episode that she has had and she could not get any relief. She has been taking Bentyl and that has usually subsided or she has gone to bed and trying to lay flat that will help. Associated signs and symptoms, does not feel like eating, bloating, hard, and some nausea. Bowel movements have been regular with the MiraLAX. She last had a bowel movement this morning and had 2 yesterday. Remainder of review of systems negative for any pertinent positives or negatives. A CAT scan was done in ER. PAST MEDICAL HISTORY: Includes anxiety, depression, chronic headaches, hypertension, and history of opioid dependence. PAST SOCIAL HISTORY: , employed, and disabled due to migraine headaches. Children, 2, ages 30 and 25. Smoking: Smokes 3 cigarettes a day. Caffeine: [place] Monster drink one a day. Alcohol use: Rare. Carbonation: Diet Coke rarely. FAMILY HISTORY: Positive for elevated cholesterol and diabetes in mother. Prostate cancer, maternal grandfather. Paternal grandfather had strokes and paternal grandfather had myocardial infarction. PAST SURGICAL HISTORY: 1. Cain-en-Y gastric bypass surgery on 09/11/2006; consult weight 220.6, weight loss of approximately 50 pounds. 2. LASIK surgery. 3. Tonsillectomy. 4. Cholecystectomy. 5. Small bowel resection x2. 6. D and C. 7. Right fallopian tube removal. 8. Lumbar spine surgery. 9. Hip replacement. 10.Shoulder surgery. REVIEW OF SYSTEMS: CONSTITUTIONAL: Denies any fever, chills, night sweats, or fatigue. SKIN: Negative for rashes, changes, or pigmentary lesions. HEENT: Denies any headache, dizziness, blurred vision, nasal congestion, or sore throat. CARDIOVASCULAR: No chest pain, shortness of breath, or fast or irregular heart beat. RESPIRATORY: No cough or shortness of breath. HEMATOLOGIC: Negative. GASTROINTESTINAL: As above. GENITOURINARY: No UTI signs and symptoms. MUSCULOSKELETAL: No joint pain or swelling. NEUROLOGICAL: No history of focal neurological symptoms, spells, or memory changes. PSYCHIATRIC: Negative for any depression, anxiety, or panic. Remainder of review of systems negative for any pertinent positives or negatives. CURRENT MEDICATIONS: Include bupropion 150 mg b.i.d.; Bentyl 20 mg 1 tablet 3 times a day p.r.n. gas and bloating; Maxalt 10 mg take 1 tablet as needed for migraine headache, repeat 2 hours later, not to exceed 30 mg in 24 hours; Cymbalta 60 mg delayed-release 1 capsule by mouth twice a day; propranolol 20 mg 3 times a day; hydroxyzine 1 tablet by mouth twice a day as needed for anxiety; topiramate 1 tablet twice a day p.o.; magnesium 500 mg 1 tablet by mouth once daily; Flonase 50 mcg nasal spray 2 sprays nasally once daily in each nostril; potassium gluconate 99 mg take 1 tablet by mouth 1 time a day; probiotic 1 capsule by mouth once a day; vitamin D3 at 2000 international units once a day; multivitamin 1 tablet twice a day; calcium carbonate 1 tablet twice a day; vitamin B12 at 1000 mcg sublingual once daily; and B complex 1 tablet by mouth once a day. ALLERGIES: TO SULFA DRUGS, HIVES. MORPHINE, GI INTOLERANCE. IBUPROFEN, GI INTOLERANCE. OBJECTIVE: GENERAL: Deepa is a pleasant 55-year-old female. VITAL SIGNS: Height is 5 feet 7 inches, weight is 172 pounds. BMI is 26.9. TPR is 97.8, 81, and 20. Blood pressure 157/101. HEENT: Negative. NECK: Supple. HEART: Regular rate and rhythm. LUNGS: Clear. ABDOMEN: Generalized distention. Minimal tenderness in the periumbilical area and to the left mid quadrant. EXTREMITIES: Without peripheral edema. NEUROLOGIC: Cranial nerves 2 through 12 intact. SKIN: Without rash. PSYCHIATRIC: Mood and affect appropriate. ASSESSMENT: 1. Partial small-bowel obstruction. 2. Status post Cain-en-Y gastric bypass surgery. 3. Unspecified surgical malabsorption. 4. B12 deficiency. 5. Essential hypertension. 6. Xanax use disorder, in early remission of abuse. 7. Sleep deprivation. 8. Seizure. 9. History of major depression. 10.Migraine headaches. 11.Degenerative disk disease. 12.History of nicotine use. PLAN: 1. Admit as inpatient to Med Surgery floor. Clear liquids today. Vital signs every 4 hours. NPO after midnight. Check ferritin, folic acid, magnesium, phosphorus, B12, and vitamin D. Schedule, have consent signed for exploratory laparotomy with reduction of small bowel obstruction and possible small bowel resection. order caller to OR 09/24/2021, Rory Wei MD. General anesthesia with TAP block, ketamine bolus and drip, and cefoxitin 2 g IV on-call to OR. 2. NPO after midnight, D5LR at 125 mL/hour. 3. 1 L of LR with multivitamins 1 time today. Zofran 4 mg IV q.6 hours p.r.n. nausea, Protonix 40 mg IV daily. 4. SCDs, may be up ad glenna, and Tylenol 500 mg q.6 hours p.r.n. pain. We will start home medications. We will evaluate p.r.n. or in a.m. After preoperative evaluation and discussion of possible risks and possible complications, the patient wished to proceed with surgical procedure. Juliana Garcia PA-C /[id number]
[2021-09-23] MEDS: Rizatriptan 10 MG Tab.DIS PO PRN (11:36)
[2021-09-23] MEDS: Pantoprazole 40 MG Vial IVPUSH SCH (12:31)
[2021-09-23] MEDS: Ondansetron 4 MG/2 ML SDV IVPUSH PRN (18:26)
[2021-09-23] MEDS: Dextrose 5%-Lactated Ringers 1,000 ML IV SCH (19:30)
[2021-09-24] MEDS: Propranolol 40 MG Tab PO SCH ×3 (02:01→17:54)
[2021-09-24] MEDS: Rizatriptan 10 MG Tab.DIS PO PRN ×2 (03:05→20:11)
[2021-09-24] MEDS: Dextrose 5%-Lactated Ringers 1,000 ML IV SCH (03:37)
[2021-09-24] MEDS ORDERED: Acetaminophen 500 MG Tab PO ONE (07:30)
[2021-09-24] MEDS ORDERED: Celecoxib 200 MG Cap PO ONE (07:30)
--- NOTE | 2021-09-24 07:34 | PN ---
DATE OF SERVICE: 09/24/2021 SUBJECTIVE: Deepa is n.p.o. She will be having an exploratory laparotomy today. Pain has been controlled with IV Dilaudid. She does have a new headache, which she took Maxalt for, really has not helped. She states she believes it is from sleep deprivation. Review of systems negative for any other pertinent positives and negatives. OBJECTIVE: GENERAL: Deepa White is a pleasant 55-year-old female. VITAL SIGNS: TPR 96, 74, 18. Blood pressure 120/70. HEENT: Negative. NECK: Supple. HEART: Regular rate and rhythm. LUNGS: Clear. ABDOMEN: Remains to be slightly distended. Tenderness in the periumbilical and left mid quadrant. EXTREMITIES: Without peripheral edema. ASSESSMENT: Partial small bowel obstruction. PLAN: Rory Wei MD, discussed surgery with her, possible risks and complications, and she wishes to proceed with surgical procedure. Rx; Celebrex 200 mg p.o. one time daily at 0730 with sip of water, Tylenol 1000 mg p.o. one time only at 0730 with a sip of water. Orders to be written postoperatively. Juliana Garcia PA-C /[id number]
[2021-09-24] MEDS ORDERED: fentaNYL 250 MCG/5 ML SDV ONE ×2 (08:48→15:03)
[2021-09-24] MEDS ORDERED: Succinylcholine 200 MG/10 ML MDV ONE (08:49)
[2021-09-24] MEDS ORDERED: Rocuronium 50 MG/5 ML Vial ONE (08:49)
[2021-09-24] MEDS ORDERED: Neostigmine Methylsulfate 1 MG/ML 5 ML Syringe ONE (08:49)
[2021-09-24] MEDS ORDERED: Ondansetron 4 MG/2 ML SDV ONE (08:49)
[2021-09-24] MEDS ORDERED: Dexamethasone 4 MG/ML SDV ONE (08:49)
[2021-09-24] MEDS ORDERED: Glycopyrrolate 0.2 MG/ML 5 ML MDV ONE (08:49)
[2021-09-24] MEDS ORDERED: Propofol 200 MG/20 ML SDV ONE (08:49)
[2021-09-24] MEDS: Pantoprazole 40 MG Vial IVPUSH SCH (09:05)
[2021-09-24] MEDS: Topiramate 25 MG Tab PO SCH ×2 (09:05→20:20)
[2021-09-24] MEDS: DULoxetine 30 MG Cap PO SCH ×2 (09:05→20:21)
[2021-09-24] MEDS: buPROPion 150 MG Tab.SR PO SCH ×2 (09:05→20:20)
[2021-09-24] MEDS: Ondansetron 4 MG/2 ML SDV IVPUSH PRN (09:08)
[2021-09-24] MEDS: Potassium Chloride 10 MEQ Cap.ER PO SCH (09:48)
[2021-09-24] MEDS ORDERED: cefOXitin 2 GM in Sodium Chloride 0.9% 50 ML IV ONE (12:00)
[2021-09-24] MEDS ORDERED: Ketamine 500 MG/5 ML MDV IV SCH ×5 (12:00→12:15)
[2021-09-24] MEDS ORDERED: Ketamine 18 MG in Sodium Chloride 0.9% 19.82 ML IV SCH (12:15)
[2021-09-24] MEDS ORDERED: cefOXitin 2 GM Vial ONE (12:53)
[2021-09-24] MEDS ORDERED: Bupivacaine 0.5% 50 ML MDV ONE (12:54)
[2021-09-24] MEDS ORDERED: Lidocaine 1% with EPINEPHrine 1:100,000 50 ML MDV ONE (12:54)
[2021-09-24] MEDS ORDERED: Meropenem 500 MG SDV ONE (13:29)
[2021-09-24] MEDS ORDERED: Scopolamine 1.5 MG Transdermal Patch ONE (14:47)
[2021-09-24] MEDS ORDERED: hydrALAZINE 20 MG/ML SDV ONE (15:18)
[2021-09-24] MEDS ORDERED: HYDROmorphone/Normal Saline 15 MG/30 ML PCA IV PRN (15:23)
[2021-09-24] MEDS ORDERED: Naloxone 0.4 MG/ML SDV IVPUSH PRN (15:23)
[2021-09-24] MEDS ORDERED: Naloxone 0.4 MG/ML SDV IV PRN (16:00)
[2021-09-24] MEDS ORDERED: Lactated Ringers 1,000 ML ONE (16:06)
[2021-09-24] MEDS ORDERED: Cyclobenzaprine 10 MG Tab PO PRN (17:15)
[2021-09-24] MEDS ORDERED: Dextrose 5%-Lactated Ringers 1,000 ML IV SCH (17:15)
[2021-09-24] MEDS: Acetaminophen 500 MG Tab PO SCH (17:54)
[2021-09-24] MEDS ORDERED: diphenhydrAMINE 50 MG/ML SDV IVPUSH PRN (18:00)
[2021-09-24] MEDS ORDERED: MVI, Adult with Vitamin K 10 ML, Thiamine 200 MG, Zinc/Copper/Manganese/Selenium 1 ML i... IV SCH ×4 (18:00)
[2021-09-24] MEDS ORDERED: Ondansetron 4 MG/2 ML SDV IVPUSH PRN (18:00)
[2021-09-24] MEDS ORDERED: Acetaminophen 500 MG Tab PO PRN (18:00)
[2021-09-24] MEDS ORDERED: Labetalol 20 MG/4 ML Syringe IVPUSH PRN (18:00)
[2021-09-24] MEDS ORDERED: hydrOXYzine HCL 100 MG/2 ML SDV IM PRN (18:00)
[2021-09-24] MEDS ORDERED: Metoclopramide 10 MG/2 ML SDV IVPUSH PRN (18:00)
[2021-09-24] MEDS ORDERED: Hypromellose 0.3% Ophth Soln 15 ML Bottle EYEBOTH PRN (19:41)
[2021-09-24] MEDS: cefOXitin 2 GM in Sodium Chloride 0.9% 50 ML IV SCH (19:57)
[2021-09-24] MEDS ORDERED: Pantoprazole 40 MG Vial IVPUSH SCH (20:00)
[2021-09-24] MEDS: Heparin Sodium 5,000 Units/ML Vial SUBCUT SCH (20:12)
[2021-09-25] MEDS: Propranolol 40 MG Tab PO SCH ×3 (01:05→16:15)
[2021-09-25] MEDS: Acetaminophen 500 MG Tab PO SCH ×3 (01:54→17:43)
[2021-09-25] MEDS: cefOXitin 2 GM in Sodium Chloride 0.9% 50 ML IV SCH ×4 (01:55→20:03)
[2021-09-25] MEDS ORDERED: Iopamidol 612 MG/ML 50 ML SDV PO STA (06:25)
[2021-09-25] MEDS ORDERED: Ondansetron 4 MG Tab.DIS PO PRN (06:37)
[2021-09-25] MEDS ORDERED: Dextrose 5%-Lactated Ringers 1,000 ML IV SCH (06:45)
--- NOTE | 2021-09-25 08:26 | PN ---
DATE OF SERVICE: 09/25/2021 Deepa is postop day #1. She states her pain is controlled with the BOWLING BALL MOLDER. She has been up ambulating once for her upper GI this morning. Upper GI was normal. She has not been using her incentive spirometer. Reports headache comes and goes. She feels it is more from lack of sleep. OBJECTIVE: Deepa is a pleasant 55-year-old female. TPR is 96.4, 85, 18, and blood pressure 131/67. HEENT: Negative. NECK: Supple. HEART: Regular rate and rhythm. LUNGS: Clear. ABDOMEN: Dressings dry and intact. Abdominal binder is on. EXTREMITIES: Without peripheral edema. ASSESSMENT: Exploratory laparotomy with lysis of adhesions: 1. Reduction of small bowel volvulus and closure of internal hernia. 2. Revision of the jejunojejunostomy component of the Cain-en-Y gastric bypass. 3. Excision of peritoneal nodules x2. 4. Repair of incarcerated incisional hernia. 5. Placement of Interceed mesh. POSTOPERATIVE DIAGNOSES: 1. Partial small bowel obstruction secondary to adhesions over jejunojejunostomy with de- sterilization and dilation with close loop at jejunojejunostomy. 2. Peritoneal implant over distal small bowel (5.5 cm). 3. Peritoneal implant left upper quadrant abdominal wall 15 cm. 4. Focal small bowel volvulus. 5. Recurrent incarcerated trocar site hernia. Date of procedure 09/24/2021. Surgeon, Rory Wei MD. PLAN: 1. Decrease IV to 100 mL per hour. 2. Step-2 gastric bypass diet without cereal. 3. Use incentive spirometer 10 times every hour while awake. The patient is a smoker and postop. 4. Colace 100 mg p.o. b.i.d. 5. Dulcolax 10 mg b.i.d. p.o. 6. MiraLAX 51 g daily and continue to ambulate 6 times daily. 7. We will evaluate p.r.n. or in a.m. Juliana Garcia PA-C /[id number]
[2021-09-25] MEDS: Polyethylene Glycol 3350 Powder 17 GM Packet PO SCH (08:52)
[2021-09-25] MEDS: Heparin Sodium 5,000 Units/ML Vial SUBCUT SCH ×2 (08:53→20:03)
[2021-09-25] MEDS: Docusate Sodium 100 MG Cap PO SCH ×2 (08:58→20:02)
[2021-09-25] MEDS: Bisacodyl 5 MG Tab PO SCH ×2 (08:58→20:03)
[2021-09-25] MEDS: DULoxetine 30 MG Cap PO SCH ×2 (09:00→20:03)
[2021-09-25] MEDS: Celecoxib 200 MG Cap PO SCH ×2 (09:00→20:06)
[2021-09-25] MEDS: Topiramate 25 MG Tab PO SCH ×2 (09:00→20:03)
[2021-09-25] MEDS ORDERED: Pantoprazole 40 MG Vial IVPUSH SCH (09:00)
[2021-09-25] MEDS: Pantoprazole 40 MG Tab.CR PO SCH (09:00)
[2021-09-25] MEDS: SCOPOLAMINE PATCH CHECK TOP SCH (09:01)
[2021-09-25] MEDS: buPROPion 150 MG Tab.SR PO SCH ×2 (09:01→20:02)
--- NOTE | 2021-09-25 09:34 | CR ---
UGI Limited HISTORY: Postbariatric surgery revision FINDINGS: Patient swallowed water-soluble contrast. Upright views of the abdomen show no evidence of extravasation or obstruction. IMPRESSION: Status post bariatric surgery revision No extravasation or obstruction seen
--- NOTE | 2021-09-25 10:29 | CR ---
Abdomen 1V Flat CLINICAL HISTORY: Verification of instruments FINDINGS: Intestinal gas pattern is nonacute. There is gas and feces throughout the colon. Patient has had a previous ventral hernia repair IMPRESSION: Nonacute intestinal gas pattern Previous ventral hernia repair No metallic radiopacity is identified in the abdomen
[2021-09-25] MEDS ORDERED: MVI, Adult with Vitamin K 10 ML, Thiamine 200 MG, Zinc/Copper/Manganese/Selenium 1 ML i... IV SCH ×4 (16:00)
[2021-09-26] MEDS: Acetaminophen 500 MG Tab PO SCH (01:09)
[2021-09-26] MEDS: Propranolol 40 MG Tab PO SCH ×2 (01:10→08:38)
[2021-09-26 01:15] VITALS: BP 134/81
[2021-09-26] MEDS: Polyethylene Glycol 3350 Powder 17 GM Packet PO SCH (08:37)
[2021-09-26] MEDS: Bisacodyl 5 MG Tab PO SCH (08:37)
[2021-09-26] MEDS: Celecoxib 200 MG Cap PO SCH (08:38)
[2021-09-26] MEDS: Topiramate 25 MG Tab PO SCH (08:38)
[2021-09-26] MEDS: buPROPion 150 MG Tab.SR PO SCH (08:38)
[2021-09-26] MEDS: Heparin Sodium 5,000 Units/ML Vial SUBCUT SCH (08:39)
[2021-09-26] MEDS: Docusate Sodium 100 MG Cap PO SCH (08:39)
[2021-09-26] MEDS: Pantoprazole 40 MG Tab.CR PO SCH (08:39)
[2021-09-26] MEDS: SCOPOLAMINE PATCH CHECK TOP SCH (08:42)
[2021-09-26] MEDS: DULoxetine 30 MG Cap PO SCH (08:43)
[2021-09-26] MEDS ORDERED: Cyanocobalamin (Vitamin B12) 1,000 MCG/ML SDV IM ONE (09:00)
[2021-09-26 09:20] VITALS: PULSE 68
--- NOTE | 2021-09-27 01:21 | DISCH ---
ADMISSION DIAGNOSES: 1. Abdominal pain. 2. Partial small bowel obstruction. 3. Status post Cain-en-Y gastric bypass surgery. 4. Unspecified surgical malabsorption. 5. B12 deficiency. 6. Essential hypertension. 7. Sleep deprivation. 8. Seizure. 9. History of major depression. DISCHARGE DIAGNOSES: Exploratory laparotomy with lysis of adhesions. 1. Reduction of small bowel volvulus and closure of internal hernia. 2. Revision of the jejunojejunostomy component of the Cain-en-Y gastric bypass. 3. Excision of peritoneal nodules x2. 4. Repair of incarcerated incisional hernia. 5. Placement of Interceed mesh. POSTOPERATIVE DIAGNOSES: 1. Partial small bowel obstruction secondary to adhesions over jejunostomy with deserosalization and dilation with close loop of the jejunojejunostomy. 2. Peritoneal implant over distal small bowel, 5.5 cm. 3. Small peritoneal implant for left upper quadrant abdominal wall, 15 cm. 4. Focal small bowel volvulus. 5. Recurrent incarcerated trocar site hernia. Date of procedure 09/24/2021. Surgeon: Rory Wei. HISTORY: Deepa White is a pleasant 55-year-old female with partial small bowel obstruction. After preoperative evaluation and discussion of possible risks and possible complications, she wished to proceed with surgical procedure. HOSPITAL COURSE: Deepa had her surgery on 09/24/2021. She had no operative complication. Pain was well controlled with the PROOFING MACHINE OPERATOR. She was started on a step 2 gastric bypass diet on postop day 1 and bowel stimulation. On postop day 2, she had 2 bowel movements. Her IV infiltrated, so she was started on oral medication. The pain was controlled with Tylenol and Celebrex. Activity was good. Vital signs stable. Oral intake 2350. Urine output 3100. She was able to be discharged to home without any complications on postop day 2. PHYSICAL EXAMINATION: GENERAL: Deepa is a pleasant 55-year-old female. VITAL SIGNS: Height is 5 feet 7 inches, weight is 174 pounds, BMI is 27.3. TPR is 96.4, 75, 18, blood pressure 134/81. HEENT: Negative. NECK: Supple. HEART: Regular rate and rhythm. LUNGS: Clear. ABDOMEN: Aquacel dressings on. Abdominal binder is on. EXTREMITIES: Without peripheral edema. DISPOSITION: Discharged to home. CONDITION: Stable and improving. FOLLOWUP APPOINTMENT: With Juliana Garcia PA-C, on 10/07/2021 at 9:30 a.m. HOME PRESCRIPTIONS: Celebrex 200 mg p.o. b.i.d., #28, and she is to resume her home medications. Tylenol 1000 mg q.8 hours, hydroxyzine 25 mg p.o. b.i.d. p.r.n. anxiety, Wellbutrin SR 150 p.o. b.i.d., Topamax 50 mg p.o. b.i.d., Cymbalta 60 mg p.o. b.i.d., Maxalt 10 mg p.o. p.r.n. migraine headache, Inderal 10 mg p.o. b.i.d., potassium 99 mg p.o. daily. She is to resume recommended vitamins and supplements. DIET: Step 3 gastric bypass diet for 2 weeks. Drink 8 to 10 glasses of water a day. ACTIVITY: No lifting greater than 10 pounds for 6 weeks. OTHER ACTIVITY: Walk 6 times daily inside your home. Driving: Do not drive for 1 week. Shower/bathing: May shower. Wound incision care: Keep operative site clean and dry. Take off Aquacel dressing in 3 days. Wear abdominal binder for 6 weeks if tolerated. Notify provider if any fever, increased pain, swelling, redness, drainage, nausea, or vomiting. Use incentive spirometer 10 times every hour while awake for 1 week. /[id number]
--- NOTE | 2021-09-30 08:26 | OR ---
DATE OF PROCEDURE: 09/24/2021 SURGEON: Rory Wei MD PREOPERATIVE DIAGNOSIS: Partial small bowel obstruction. POSTOPERATIVE DIAGNOSES: 1. Partial small bowel obstruction secondary to adhesions overlying jejunojejunostomy with dilation and decompensation of jejunojejunostomy, adjacent common limb of the small bowel. 2. Peritoneal implant over distal small bowel. 3. Peritoneal implant, left upper quadrant abdominal wall. 4. Focal small bowel volvulus. 5. Recurrent incarcerated incisional hernia. OPERATIVE PROCEDURE: Exploratory laparotomy with lysis of adhesions with: 1. Reduction of small bowel volvulus and subsequent closure of the internal hernia (55881). 2. Revision of jejunojejunostomy component of Cain-en-Y gastric bypass (40224). 3. Excision of peritoneal nodule over the distal aspect of small bowel (98357). 4. Excision of peritoneal nodule of left upper quadrant abdominal wall (77721). 5. Repair of incarcerated incisional hernia (74607). 6. The patient did receive mesh to limit recurrent adhesion formation over the abdominal wall and underlying viscera (20211). ANESTHESIA: General. SDE: Juliana Garcia PA-C INDICATIONS FOR PROCEDURE: This is a 55-year-old female presenting with ongoing problems with partial small bowel obstruction being worse over the last few days (the patient presented to the emergency room with subsequent admission). Plan is to proceed with an exploratory laparotomy with release of small bowel obstruction and small bowel resection as indicated. Potential risks of the procedure including bleeding, infection, injury to the underlying viscera, problems with recurrence of the problem, leaks from the GI tract closures, and such were all reviewed, and the patient wishes to proceed. DETAILS OF PROCEDURE: The patient was taken to the operating room, placed in a supine position. After general endotracheal anesthesia was induced, a Bourne catheter was inserted, and the abdomen prepped and draped. The previous upper midline incision was made from the umbilicus to roughly 4 fingerbreadths below the xiphoid and carried down through the full- thickness abdominal wall. Upon entering the peritoneal cavity, some scattered omental adhesions were taken down from the abdominal wall. A general exploration at this point was noted. The patient was noted to have some adhesions crossing over the area just distal to the jejunojejunostomy. This resulted in marked dilation and decompensation of the common limb and proximally to involve the jejunojejunostomy. The patient also noted to have a focal small bowel volvulus with a portion of the biliopancreatic limb having rotated underneath the Cain limb. This area was subsequently reduced and the area closed with 2-0 Vicryl stitch at the mesenteric level. The patient was also noted to have 2 peritoneal implants, one over the distal small bowel measuring 5.5 cm and the second overlying the left upper quadrant of the peritoneal cavity was elongated like peritoneal implant measuring total of around 15 cm. Both of these were excised and sent separately for histologic evaluation. At this point, the jejunojejunostomy component of the Cain-en-Y gastric bypass was revised. The area of decompensation was then resected with division of the of the biliopancreatic limb away from the Cain to the common limb. The latter was then resected and then we anastomosed with internal firing of the Endo-JOSE 60 mm stapler. Common opening was closed transversely with the same stapler. Angles anastomosed, and mesenteric defect approximated with some 3-0 Vicryl stitch and 2-0 silk stitch respectively. Beyond the first anastomosis, then the biliopancreatic limb was reimplanted at a point roughly 20 cm distal to the first anastomosis with the same sequence of goldy and suturing. At that point, no further problems were noted. The area was irrigated with antibiotic-containing saline solution. In the entrance of the abdomen, the patient was noted to have a trocar site hernia within the midline incision, and the contents of this were excised. Interceed mesh was then placed underneath the incision around the surrounding pelvic and abdominal wall to limit recurrent adhesion formation and the midline fascia was approximated with #2 Vicryl stitch which included repair of the incisional hernia. Subcutaneous tissue was approximated with some 3-0 Vicryl stitch followed by 4-0 Vicryl subdermal stitch and goldy for the skin. Dressing was applied. The patient was taken to the recovery room in satisfactory condition. During the case, the patient had bilateral transversus abdominis plane blocks placed, and also had the incision site with 1% lidocaine mixed with Marcaine, and the patient tolerated the procedure well. Physician certified ophthalmic surgical assistant, Juliana Garcia, played an essential role in assisting in this case, helping to position the patient, retract structures as needed, as well as suturing and cutting sutures when indicated. Her presence improved patient safety and decreased the operative time. Rory Wei MD /[id number]
== END 2021-09-26 10:05 | disposition home or self-care (01) | DRG 326 ==
LOC: JP.ED 04:09 → JP.2SS 07:00
PROVIDERS: ADMIT Surgery; ATTEND Physician Assistant Medical
PROC: 0D160ZA Bypass Stomach to Jejunum, Open Approach (ICD-10-PCS; principal; 2021-09-24)
PROC: 0DS80ZZ Reposition Small Intestine, Open Approach (ICD-10-PCS; 2021-09-24)
PROC: 0WQF0ZZ Repair Abdominal Wall, Open Approach (ICD-10-PCS; 2021-09-24)
PROC: 3E0M05Z Introduction of Adhesion Barrier into Peritoneal Cavity, Open Approach (ICD-10-PCS; 2021-09-24)
DX: R10.13 Epigastric pain (principal); Z87.19 Personal history of other diseases of the digestive system; Z98.84 Bariatric surgery status; M19.90 Unspecified osteoarthritis, unspecified site; G89.29 Other chronic pain; M54.2 Cervicalgia; K95.89 Other complications of other bariatric procedure; K56.2 Volvulus; E61.1 Iron deficiency; K90.9 Intestinal malabsorption, unspecified; F17.200 Nicotine dependence, unspecified, uncomplicated; K43.0 Incisional hernia with obstruction, without gangrene; F11.20 Opioid dependence, uncomplicated; Z88.8 Allergy status to other drugs, medicaments and biological substances; Z79.899 Other long term (current) drug therapy; Y83.8 Other surgical procedures as the cause of abnormal reaction of the patient, or of later complication, without mention of misadventure at the time of the procedure; E53.8 Deficiency of other specified B group vitamins; I10 Essential (primary) hypertension; F32.A Depression, unspecified; R56.9 Unspecified convulsions; Z72.820 Sleep deprivation; K66.8 Other specified disorders of peritoneum; F41.9 Anxiety disorder, unspecified; F17.210 Nicotine dependence, cigarettes, uncomplicated; Z90.49 Acquired absence of other specified parts of digestive tract; Z90.89 Acquired absence of other organs; Z96.649 Presence of unspecified artificial hip joint; Z98.890 Other specified postprocedural states; Z88.2 Allergy status to sulfonamides; Z88.6 Allergy status to analgesic agent; Z88.5 Allergy status to narcotic agent; Z20.822 Contact with and (suspected) exposure to COVID-19
CPT/HCPCS: 36415; 74177; 80053; 81001; 82306; 82607; 82728; 82746; 83605; 83690; 83735; 84100; 85025; 96374; 99285; J1170; J2405; J7120; Q9967; U0002; 74018; 74018-26; 74240; 74240-26; 88302; 88305; 88307; 88341; 88342; 96375; A9270-GY; C9113; J0171; J0330; J0360; J0694; J1100; J1644; J2020; J2185; J2704; J2710; J2795; J3010; J3411; J3420; J3475; J3490; J7121

== ENCOUNTER 2025-02-24 08:04 | Day surgery (SDC) | payer MEDICARE ==
[~2025-02-24 08:04] MED LIST: Midazolam 1 MG/ML 2 ML SDV ONE
[2025-02-24] MEDS: Lactated Ringers 1,000 ML IV SCH (08:42)
[2025-02-24] MEDS ORDERED: Propofol 200 MG/20 ML SDV ONE (08:43)
[2025-02-24] MEDS ORDERED: fentaNYL 100 MCG/2 ML SDV ONE (08:43)
[2025-02-24 10:03] VITALS: BP 114/71; PULSE 64
== END 2025-02-24 10:22 | disposition home or self-care (01) ==
LOC: JP.SDS 08:04
PROVIDERS: ATTEND Family Medicine
DX: K59.00 Constipation, unspecified (principal); I10 Essential (primary) hypertension; F17.200 Nicotine dependence, unspecified, uncomplicated
CPT/HCPCS: 45378; J2250; J2704; J3010; J7120; 00811-QZ